=== PATIENT | male | born 1935 | race Asian ===

== ENCOUNTER 2018-04-23 12:35 | Inpatient (IN) | payer MEDICARE ==
[~2018-04-23] VITALS: Ht 165.1 cm; Wt 77.1 kg
[2018-04-23] MEDS ORDERED: SODIUM CHLORIDE 0.9% 1,000 ML IVB ONE (13:30)
[2018-04-23 13:49] LABS: Basophils # (auto) 0 uL; Basophils % (auto) 0.3 % (0.0-2.0); Eosinophils # (auto) 0 uL; Eosinophils % (auto) 0.5 % (0.0-7.0); Hematocrit 38.4 % (41.0-53.0); Hemoglobin 13.2 g/dL (13.5-17.5); Lymphocytes # (auto) 1.1 uL; Lymphocytes % (auto) 15.2 % (10.0-50.0); Mean Corpuscular Hemoglobin 30.8 pg (28.0-32.0); Mean Corpuscular Hgb Conc. 34.2 g/dL (32.0-36.0); Monocytes # (auto) 0.4 uL; Monocytes % (auto) 5.8 % (0.0-12.0); Neutrophils # (auto) 5.6 uL; Neutrophils % (auto) 78.2 % (37.0-80.0); Platelet Count (auto) 162 10^3/uL (140-450); Red Blood Cells 4.27 10^6/uL (4.5-5.90); Red Cell Distribution Width 13.5 % (11.8-14.3); White Blood Cell 7.2 10^3/uL (4.4-10.8)
[2018-04-23 14:05] LABS: INR 0.91 (0.9-1.15); Partial Thromboplastin Time 23.8 sec (23.78-33.04); Prothrombin Time 9.8 sec (9.27-12.13)
[2018-04-23 14:17] LABS: Albumin 3.6 g/dL (3.4-5.0); BUN/Creatinine Ratio 14.9; Calcium 8.6 mg/dL (8.5-10.1); Magnesium 2.3 mg/dL (1.6-2.6); Potassium 3.7 mmol/L (3.5-5.1)
[2018-04-23 14:21] LABS: Total Protein 7.4 g/dL (6.4-8.2)
[2018-04-23 15:46] LABS: Urine Bacteria NONE SEEN /hpf (None Seen); Urine Blood Negative /uL (Negative); Urine WBC <1 /hpf (0 - 3)
[2018-04-23] MEDS ORDERED: DEXTROSE (50%) 50ML SYRG IV PRN (17:30)
[2018-04-23] MEDS ORDERED: LORazepam 0.5 MG TAB PO PRN (17:30)
[2018-04-23] MEDS ORDERED: ONDANSETRON HCL 4 MG/2 ML VIAL IV PRN (17:30)
[2018-04-23] MEDS ORDERED: ACETAMINOPHEN 500 MG TAB PO PRN (17:30)
[2018-04-23] MEDS ORDERED: HYDROcodone-ACET 5/325MG TAB PO PRN (17:30)
[2018-04-23] MEDS ORDERED: LACTULOSE 20Gm/30ML SOLN PO PRN (17:30)
[2018-04-23] MEDS ORDERED: MORPHINE SULFATE 4 MG/ML SYR/VIAL IV PRN ×2 (17:30)
[2018-04-23] MEDS ORDERED: TEMAZEPAM 15 MG CAP PO PRN (17:30)
[2018-04-23] MEDS ORDERED: NITROGLYCERIN 0.4 MG SL TAB SL PRN (17:30)
[2018-04-23] MEDS: SODIUM CHLORIDE 0.9% 1,000 ML IV SCH (18:04)
[2018-04-23] MEDS: ACCU-CHEK COMFORT CURVE STRIP VI SCH (18:07)
[2018-04-23] MEDS: METOPROLOL TARTRATE 25 MG TAB PO SCH ×2 (18:35→22:04)
[2018-04-23 20:00] VITALS: BP 112/80
[2018-04-23] MEDS ORDERED: ENOXAPARIN SOD 80 MG/0.8ML SYRINGE SC SCH (22:00)
[2018-04-23 22:19] VITALS: BP 112/80
[2018-04-24] MEDS: ACCU-CHEK COMFORT CURVE STRIP VI SCH ×2 (00:04→05:55)
[2018-04-24 05:00] VITALS: BP 116/64
[2018-04-24] MEDS: SODIUM CHLORIDE 0.9% 1,000 ML IV SCH (05:49)
[2018-04-24 06:35] LABS: Basophils # (auto) 0 uL; Basophils % (auto) 0.2 % (0.0-2.0); Eosinophils # (auto) 0.1 uL; Eosinophils % (auto) 0.9 % (0.0-7.0); Hematocrit 37.9 % (41.0-53.0); Hemoglobin 12.9 g/dL (13.5-17.5); Lymphocytes # (auto) 1.2 uL; Lymphocytes % (auto) 19.4 % (10.0-50.0); Mean Corpuscular Hemoglobin 30.5 pg (28.0-32.0); Mean Corpuscular Hgb Conc. 34.1 g/dL (32.0-36.0); Mean Corpuscular Volume 89.4 fL (80.0-100.0); Monocytes # (auto) 0.4 uL; Monocytes % (auto) 7.5 % (0.0-12.0); Neutrophils # (auto) 4.3 uL; Nucleated Red Blood Cells % 0.1 %; Platelet Count (auto) 160 10^3/uL (140-450); Red Blood Cells 4.24 10^6/uL (4.5-5.90); Red Cell Distribution Width 13.8 % (11.8-14.3); White Blood Cell 5.9 10^3/uL (4.4-10.8)
[2018-04-24 06:48] LABS: Albumin 3.2 g/dL (3.4-5.0); Potassium 3.9 mmol/L (3.5-5.1)
[2018-04-24 06:53] LABS: BUN/Creatinine Ratio 18.7; Bilirubin, Total 1.2 mg/dL (0.2-1.0); Calcium 8.4 mg/dL (8.5-10.1); Total Protein 6.7 g/dL (6.4-8.2)
[2018-04-24 08:20] VITALS: BP 107/68
[2018-04-24] MEDS ORDERED: ASPirin 81 mg TAB PO SCH (10:00)
[2018-04-24] MEDS ORDERED: PANTOPRAZOLE 40 MG TAB PO SCH (10:00)
[2018-04-24] MEDS: METOPROLOL TARTRATE 25 MG TAB PO SCH (10:45)
[2018-04-24 13:31] VITALS: BP 113/54
[2018-04-24] MEDS ORDERED: ATORVASTATIN 20 MG TAB PO SCH (22:00)
== END 2018-04-24 14:40 | disposition home or self-care (01) | DRG 684 ==
LOC: ER 12:35 → EDBD 12:35 → TELE 12:36 → TELE-CENTR 19:45
PROVIDERS: ADMIT Internal Medicine; ATTEND Internal Medicine
DX: N17.9 Acute kidney failure, unspecified (principal); R55 Syncope and collapse; I48.91 Unspecified atrial fibrillation; E78.5 Hyperlipidemia, unspecified; E86.0 Dehydration; I12.9 Hypertensive chronic kidney disease with stage 1 through stage 4 chronic kidney disease, or unspecified chronic kidney disease; N18.2 Chronic kidney disease, stage 2 (mild); R73.9 Hyperglycemia, unspecified; F41.9 Anxiety disorder, unspecified
CPT/HCPCS: 36415; 70450; 71045; 80053; 81001; 82550; 82962; 83036; 83605; 83735; 83880; 84443; 84484; 85025; 85379; 85610; 85652; 85730; 86141; 87040; 93005; 93017; 94761; 96360; 96361; G0378